=== PATIENT | female | born 1965 | race Caucasian/White ===

== ENCOUNTER 2023-05-31 11:48 | Outpatient (CLI) | payer BC, SELFPAY | END 2023-05-31 11:49 | disposition home or self-care (01) | LOC: KYNREF 11:50 | PROVIDERS: PCP Internal Medicine; Visit Provider Nurse Practitioner Family | DX: I10 Essential (primary) hypertension (principal); R73.09 Other abnormal glucose | CPT/HCPCS: 80053 ==